=== PATIENT | female | born 2000 | race African-American/Black ===

== ENCOUNTER 2021-05-30 17:45 | Emergency (ER) | payer OTHER, SELFPAY ==
[2021-05-30 17:57] VITALS: BP 124/81; PULSE 74; RESP 18; TEMP 37.2; O2SAT 98
[2021-05-30 21:01] LABS: Basophils Percent Auto 0.3 % (0.2-1.2); Eosinophils Absolute Auto 0.1 K/mm3 (0-0.3); Eosinophils Percent Auto 0.8 % (0-4.4); Hematocrit 28.3 % (37.0-47.0); Hemoglobin 8.1 g/dL (12.0-15.0); Immature Granulocyte Absolute 0.03 K/mm3 (0.00-0.031); Immature Granulocyte Percent A 0.5 % (0-0.5); Immature Platelet Fraction Pct 1.5 % (0.9-11.2); Lymphocytes Absolute Auto 1.99 K/mm3 (0.9-3.2); Lymphocytes Percent Auto 31.2 % (18.3-44.2); Mean Corpuscular HGB Conc 28.6 g/dl (32-36); Mean Corpuscular Hemoglobin 16.7 pg (26-34); Mean Corpuscular Volume 58.4 fl (80-100); Mean Platelet Volume 8.6 fl (7.4-10.4); Monocytes Absolute Auto 0.9 K/mm3 (0.1-0.6); Monocytes Percent Auto 13.3 % (2.6-8.5); Neutrophils Absolute Auto 3.4 K/mm3 (1.3-6.7); Neutrophils Percent Auto 53.9 % (45.5-73.1); Platelet Count Result 381 k/mm3 (150-375); Red Blood Count 4.85 M/mm3 (4.2-5.4); Red Cell Distribution Width 23.8 % (11.5-14.5); White Blood Count 6.4 K/mm3 (4.5-10.0)
[2021-05-30 21:12] VITALS: BP 125/90; PULSE 72; RESP 18; O2SAT 100
[2021-05-30 21:59] LABS: Anisocytosis 3+ (NORMAL); Hypochromasia 1+ (NORMAL)
[2021-05-30 22:00] LABS: Ovalocytes 1+ (NORMAL)
--- NOTE | 2021-05-30 22:00 | ED.FEMALEGU ---
HPI - Female Genitourinary General Chief complaint: BRANCHER Stated complaint: 8 weeks ,Abd Pain Time Seen by Provider: 05/30/21 21:05 Source: patient Mode of arrival: ambulatory Limitations: no limitations History of Present Illness HPI Narrative: Patient is a 20-year-old female, , at 8 weeks age of gestation, complaining of mild lower abdominal cramping that started today. Patient denies any vaginal bleeding or discharge. Patient denies any fever or chills. Review of Systems Review of Systems: All systems reviewed & are unremarkable except as noted in HPI and below Constitutional: Constitutional: Denies body ache(s), Denies chills, Denies excessive sweating, Denies fatigue, Denies fever(s), Denies headache(s), Denies lethargy, Denies malaise, Denies weakness and Denies weight loss Eyes: Eyes: Denies blurry vision, Denies change in vision and Denies loss of vision ENT: Denies dizziness, Denies ear discharge, Denies headache(s), Denies lip swelling, Denies epistaxis, Denies nasal congestion, Denies neck pain, Denies throat swelling and Denies tongue swelling Cardiovascular: Cardiovascular: Denies chest pain, Denies chest pain at rest, Denies chest pain with activity, Denies diaphoresis, Denies rapid heart rate, Denies edema, Denies irregular heart rhythm, Denies lightheadedness, Denies palpitations, Denies dyspnea and Denies dyspnea on exertion Respiratory: Respiratory: Denies chest congestion, Denies cough, Denies hemoptysis, Denies dyspnea and Denies dyspnea on exertion Gastrointestinal: Gastrointestinal: Denies melena, Denies hematochezia, Denies diarrhea, Denies nausea, Denies vomiting and Denies hematemesis Musculoskeletal: Musculoskeletal: Denies abnormal gait, Denies deformity, Denies joint swelling, Denies limited range of motion, Denies neck pain and Denies numbness Neurologic: Denies Abnormal speech present, Denies abnormal gait, Denies confusion, Denies dizziness, Denies headache(s), Denies focal weakness, Denies loss of vision, Denies numbness, Denies Other visual disturbances, Denies Sensory deficit (Neuro) and Denies weakness Psychiatric: Psychiatric: Denies confusion, Denies depression, Denies auditory hallucinations, Denies homicidal ideation and Denies suicidal ideation Endocrine: Endocrine: Denies cold intolerance, Denies excessive sweating, Denies fatigue, Denies heat intolerance and Denies palpitations Hematologic/Lymphatic: Hematologic/Lymphatic: Denies easy bleeding and Denies easy bruising Allergic/Immunologic: Allergic/Immunologic: Denies lip swelling, Denies throat swelling and Denies tongue swelling PMFSH Comments Past medical history: None Family history: Noncontributory Social history: Non-smoker no EtOH or drug use Exam Const: General: cooperative, healthy appearing, comfortable, no acute distress, well developed, alert and awake; No confusion Orientation/consciousness: oriented to person, oriented to place, oriented to time, patient oriented x3 and No confusion Limitations: no limitations HENMT: Head: normal to inspection, normocephalic and atraumatic Ears: hearing grossly normal bilaterally, TM normal on the right and TM normal on the left General nose exam: Normal external nose present, Normal nares present and No nasal discharge present Face and sinus: normal facial exam Mouth: Yes Normal oral and palatal mucosa present, Yes lip normal, Yes tongue normal and Yes oropharynx normal Throat: posterior oropharynx normal, tonsils normal and uvula midline Eyes: General: appearance normal, both eyes and all related structures Pupils: Equal, round and reactive pupils present EOM: EOMs intact bilaterally Neck: Neck: normal visual inspection, full ROM, no lymphadenopathy and no meningeal signs Chest: Chest palpation & inspection: normal inspection of the chest Resp: Effort & Inspection: normal respiratory effort, able to speak in complete sentences, no respiratory distress and not tachypneic Auscu
[2021-05-30 22:36] VITALS: BP 130/84; PULSE 74; RESP 18; O2SAT 100
[2021-05-30 22:42] LABS: Alanine Aminotransferase 13 U/L (4-35); Albumin Level 4.1 g/dL (3.5-5.1); Alkaline Phosphatase 48 U/L (38-126); Anion Gap 9 mmol/L (8-16); Aspartate Amino Transferase 26 U/L (14-36); Bilirubin,Total 0.4 mg/dL (0.2-1.3); Blood Urea Nitrogen 4 mg/dL (7-17); Calcium 9.1 mg/dL (8.4-10.2); Carbon Dioxide 20 mmol/L (22-30); Chloride 106 mmol/L (98-107); Estimated CRCL calculation 140 ml/min; Estimated Glomerular Filt Rate > 60; Glucose 95 mg/dL (65-110); Potassium 3.4 mmol/L (3.4-5.0); Sodium 135 mmol/L (137-145)
[2021-05-30 22:52] LABS: Bilirubin Urine Negative (Negative); Color Urine Yellow (Yellow); Glucose Urine UA Negative (Negative); Ketones Urine Negative (Negative); Leukocyte Esterase Ur 2+ LEU/UL (Negative); Nitrate Urine Negative (Negative); Protein Urine Negative (Negative); Urobilinogen Urine 0.2 mg/dL (<2.0)
[2021-05-30 22:54] LABS: Add Urine Microscopic? YES; Appearance Urine Sl Cloudy (Clear); Blood Urine Trace-Intact (Negative)
[2021-05-30 23:04] LABS: RBC Urine 0-2 /hpf (0-2); Squamous Epithelial Cell Urine Moderate /hpf (Few)
[2021-05-30 23:05] LABS: Bacteria Urine 2+ /hpf
--- NOTE | 2021-05-30 23:58 | PC.NURSE ---
Per EDP Dr Lozano ok not to administer Rhogram
== END 2021-05-31 | disposition home or self-care (01) ==
PROVIDERS: Emergency Medicine; Emergency Provider Emergency Medicine
DX: O23.41 Unspecified infection of urinary tract in pregnancy, first trimester (principal); Z3A.08 8 weeks gestation of pregnancy
CPT/HCPCS: 36415; 80053; 81001; 84702; 85025; 85055; 85461; 87086; 99283

== ENCOUNTER 2021-08-15 13:24 | Outpatient (CLI) | payer OTHER, SELFPAY ==
--- NOTE | ~2021-08-15 | US_ITS ---
EXAMINATION: US OB /maternal detail DATE: 08/15/2021 14:28 INDICATION: Second trimester anatomic survey TECHNIQUE: Real-time ultrasound of the pelvis was performed. COMPARISON: None. FINDINGS: There is a single living fetus in breech presentation. The placenta is anterior. heart rate is 132 beats per minute (bpm). cardiac activity and movement are noted. The amniotic fluid index is subjectively normal. The following anatomy was identified as normal: 4 chamber heart 3 vessel cord cord insertion kidneys urinary bladder stomach spine diaphragm ventricles cisterna magna cerebellum The following biometric data were obtained: Biparietal diameter (BPD): 4.9 cm; head circumference (HC): 17.9 cm; abdominal circumference (AC): 15 .6 cm; femur length (FL): 3.2 cm. These measurements are concordant. Estimated weight is 358 g +/- 53 g, which correlates with the 92nd percentile when 01/05/2022 is used as estimated date of delivery. As single measurements, these parameters are each equal to the following estimated gestational ages w ith ranges of +/- 2 standard deviations: BPD: 21 weeks 0 days ( 19 weeks 2 days - 22 weeks 5 days). HC: 20 weeks 2 days ( 18 weeks 6 days - 21 weeks 6 days). AC: 20 weeks 6 days ( 18 weeks 5 days - 22 weeks 6 days). FL: 20 weeks 1 days ( 18 weeks 2 days - 22 weeks 0 days). estimated gestational age based solely on measurements from this exam is 20 weeks 4 days +/- 1 weeks 3 days. IMPRESSION: 1. Single living fetus in reach presentation. 2. Estimated weight is 358 g +/- 53 g, which correlates with the 92nd percentile when 01/05/2022 is used as estimated date of delivery. Reviewed, dictated and finalized at location B. NE TURNER IMPRESSION: 1. Single living fetus in reach presentation. 2. Estimated weight is 358 g +/- 53 g, which correlates with the 92nd per centile when 01/05/2022 is used as estimated date of delivery.
== END 2021-08-15 13:25 | disposition home or self-care (01) ==
PROVIDERS: Visit Provider Obstetrics & Gynecology Gynecology
DX: Z34.92 Encounter for supervision of normal pregnancy, unspecified, second trimester (principal); Z3A.20 20 weeks gestation of pregnancy
CPT/HCPCS: 76805

== ENCOUNTER 2021-10-16 07:28 | Outpatient (RCR) | payer OTHER, SELFPAY ==
[2021-10-16 09:02] LABS: Hematocrit 33.9 % (37.0-47.0)
[2021-10-16 09:10] LABS: Glucose 1 Hour PP 50gm Dose 176 mg/dL
[2021-10-16 09:50] LABS: HIV 1/2 Ab P24 Ag Result Negative (Negative)
[2021-10-16] MEDS: RHO(D) IMMUNE GLOBULIN 300 MCG/2 ML SYRINGE IM (16:08)
== END 2022-01-14 23:59 | disposition home or self-care (01) ==
LOC: ANHLAB 07:28
PROVIDERS: Visit Provider Nurse Practitioner
DX: Z11.4 Encounter for screening for human immunodeficiency virus [HIV] (principal); Z29.13 Encounter for prophylactic Rho(D) immune globulin; O36.0190 Maternal care for anti-D [Rh] antibodies, unspecified trimester, not applicable or unspecified; Z3A.00 Weeks of gestation of pregnancy not specified
CPT/HCPCS: 36415; 82306; 82947; 85014; 85018; 85461; 86703; 90384; 96372; G0432; J2790

== ENCOUNTER 2021-11-11 15:14 | Outpatient (CLI) | payer OTHER, SELFPAY ==
[2021-11-11 15:37] VITALS: BP 136/93; PULSE 87
[2021-11-11 15:40] VITALS: BP 136/93; PULSE 86
[2021-11-11 15:45] VITALS: BP 134/97; PULSE 87
[2021-11-11 15:59] LABS: Basophils Percent Auto 0.1 % (0.2-1.2); Eosinophils Percent Auto 0.4 % (0-4.4); Hematocrit 35.2 % (37.0-47.0); Hemoglobin 11.8 g/dL (12.0-15.0); Immature Granulocyte Absolute 0.06 K/mm3 (0.00-0.031); Immature Granulocyte Percent A 0.8 % (0-0.5); Lymphocytes Absolute Auto 2.09 K/mm3 (0.9-3.2); Mean Corpuscular HGB Conc 33.5 g/dl (32-36); Mean Corpuscular Hemoglobin 24.4 pg (26-34); Mean Corpuscular Volume 72.7 fl (80-100); Mean Platelet Volume 9.8 fl (7.4-10.4); Monocytes Absolute Auto 0.8 K/mm3 (0.1-0.6); Monocytes Percent Auto 9.8 % (2.6-8.5); Neutrophils Absolute Auto 4.8 K/mm3 (1.3-6.7); Neutrophils Percent Auto 61.9 % (45.5-73.1); Platelet Count Result 276 k/mm3 (150-375); Red Blood Count 4.84 M/mm3 (4.2-5.4); White Blood Count 7.7 K/mm3 (4.5-10.0)
[2021-11-11 16:00] VITALS: BP 124/89; PULSE 81
[2021-11-11 16:05] LABS: Add Urine Microscopic? YES; Appearance Urine Cloudy (Clear); Bacteria Urine Trace /hpf; Bilirubin Urine Negative (Negative); Blood Urine 1+ (Negative); Color Urine Straw (Yellow); Glucose Urine UA Negative (Negative); Ketones Urine Negative (Negative); Leukocyte Esterase Ur 3+ LEU/UL (NEGATIVE); Mucus Urine Rare /lpf; Nitrate Urine Negative (Negative); Protein Urine Negative (Negative); Squamous Epithelial Cell Urine Rare /hpf (Few); Urobilinogen Urine Negative mg/dL (<2.0)
[2021-11-11 16:06] LABS: Specific Grav Ur 1.001 (1.001-1.035)
[2021-11-11 16:09] LABS: Alanine Aminotransferase 20 U/L (4-35); Alkaline Phosphatase 126 U/L (38-126); Anion Gap 6 mmol/L (8-16); Aspartate Amino Transferase 31 U/L (14-36); Bilirubin,Total 0.4 mg/dL (0.2-1.3); Blood Urea Nitrogen 5 mg/dL (7-17); Calcium 9.6 mg/dL (8.4-10.2); Carbon Dioxide 18 mmol/L (22-30); Chloride 107 mmol/L (98-107); Estimated Glomerular Filt Rate > 60; Glucose 85 mg/dL (65-110); Potassium 3.9 mmol/L (3.4-5.0); Sodium 131 mmol/L (137-145); Uric Acid 4.6 mg/dL (2.5-7.5)
[2021-11-11 16:15] VITALS: BP 128/86; PULSE 85
[2021-11-11 16:17] LABS: Creatinine Urine 26.6 mg/dL; Total Protein Urine Random 16 mg/dL
[2021-11-11] MEDS: BETAMETHASONE SOD PHOS/ACETATE 30 MG/5 ML VIAL 12 MG IM (17:03)
[2021-11-11 17:22] VITALS: BP 136/93; PULSE 86
== END 2021-11-11 16:00 | disposition home or self-care (01) ==
LOC: ANHOBOP 15:18 → ANHOBPP 15:18
PROVIDERS: Visit Provider Obstetrics & Gynecology Gynecology
DX: O13.9 Gestational [pregnancy-induced] hypertension without significant proteinuria, unspecified trimester (principal); Z3A.00 Weeks of gestation of pregnancy not specified
CPT/HCPCS: 36415; 59025; 80053; 81001; 82570; 84156; 84550; 85025; 87086; 87088; 96372; 99199; J0702

== ENCOUNTER 2021-11-12 16:27 | Outpatient (CLI) | payer OTHER, SELFPAY ==
[2021-11-12 16:31] VITALS: BMI 36.6
[2021-11-12] MEDS: BETAMETHASONE SOD PHOS/ACETATE 30 MG/5 ML VIAL 12 MG IM (16:35)
[2021-11-12 17:19] LABS: Collection Time Urine 24 HOURS
[2021-11-12 17:22] LABS: Total Volume 24 Hour Urine 2000 ml
[2021-11-12 17:35] LABS: Creatinine Clearance Urine 192.4 ml/min (75-125); Creatinine Urine 72.4 mg/dL; Patient Weight 187 Lbs; Total Protein Urine 24 Hr 200 mg/24hr (28-141); Total Protein Urine Random 10 mg/dL
== END 2021-11-12 16:28 | disposition home or self-care (01) ==
PROVIDERS: Visit Provider Obstetrics & Gynecology
DX: O36.8990 Maternal care for other specified fetal problems, unspecified trimester, not applicable or unspecified (principal); Z3A.00 Weeks of gestation of pregnancy not specified
CPT/HCPCS: 81050; 82575; 84156; 96372; J0702

== ENCOUNTER 2021-11-13 13:59 | Observation (INO) | payer OTHER, SELFPAY ==
--- NOTE | ~2021-11-13 | US_ITS ---
EXAMINATION: US OB BPP wo non-stress DATE: 11/16/2021 07:54 INDICATION: Prior abnormal 01/12 biophysical profile TECHNIQUE: Real-time pelvic ultrasound was performed. The interpreting radiologist was not present fo r the study. COMPARISON: 11/14/2021 FINDINGS: There is a single living fetus in vertex presentation. The placenta is anterior. heart rate is 136 beats per minute (bpm). Biophysical profile performed by the technologist: breathing (30 sec sustained breathing in 30 minutes): 2 out of 2 movement (3 gross body movements in 30 minutes): 2 out of 2 tone (one episode of mqnbktx-xdpaniurw-ajdorft limb movement): 2 out of 2 Amniotic fluid pocket (2 cm): 2 out of 2 Total score: 8 out of 8 IMPRESSION: 1. Single living fetus in vertex presentation with heart rate of 136 bpm. 2. Biophysical profile 8 out of 8. Reviewed, dictated and finalized at location A. ALTERATIONS SEAMSTRESS
--- NOTE | ~2021-11-13 | US_ITS ---
EXAMINATION: US OB BPP wo non-stress DATE: 11/13/2021 13:14 INDICATION: Biophysical profile for decreased movement TECHNIQUE: Real-time pelvic ultrasound was performed. The interpreting radiologist was not present fo r the study. COMPARISON: None. FINDINGS: There is a single living fetus in vertex presentation. The placenta is anterior. heart rate is 122 beats per minute (bpm). Biophysical profile performed by the technologist: breathing (30 sec sustained breathing in 30 minutes): 0 out of 2 movement (3 gross body movements in 30 minutes): 0 out of 2 tone (one episode of cpffojp-mvcxkjwww-jdcenih limb movement): 2 out of 2 Amniotic fluid pocket (2 cm): 2 out of 2 Total score: 4 out of 8 IMPRESSION: 1. Single living fetus in vertex presentation with heart rate of 122 bpm. 2. Biophysical profile 4 out of 8 with no points given for either breathing or movement. Findings were discussed with Laurie St, the nurse caring for the patient, at 1:32 PM. Reviewed, dictated and finalized at location A. CUTTER IMPRESSION: 1. Single living fetus in vertex presentation with heart rate of 122 bpm. 2. Biophysical profile 4 out of 8 with no points given for either breath ing or movement. Findings were discussed with Laurie St, the nurse car ing for the patient, at 1:32 PM.
--- NOTE | ~2021-11-13 | US_ITS ---
EXAMINATION: US OB follow up w BPP, US umbilical doppler DATE: 11/14/2021 07:50 INDICATION: Decreased movement. TECHNIQUE: Real-time pelvic ultrasound was performed. The interpreting radiologist was not present fo r the study. COMPARISON: None. FINDINGS: There is a single living fetus in vertex presentation. The placenta is anterior. heart rate is 124 beats per minute (bpm). Normal amniotic fluid index of 14.0 cm (5th%-95%: 8.6-34.2 cm at 32 week s estimated gestational age) The following biometric data were obtained: BPD: 8.2 cm -> 32 weeks 6 days Head circumference: 29.9 cm -> 33 weeks 1 days Abdominal circumference: 29.7 cm -> 33 weeks 5 days Femur length: 6.4 cm -> 32 weeks 6 days These measurements are concordant. Head circumference to abdominal circumference ratio: 1.01 (normal range 0.96-1.11). Estimated weight: 2172 g (+/-) 326 g, 4 lbs 12 oz (+/-) 11 oz Biophysical profile performed by the technologist: breathing (30 sec sustained breathing in 30 minutes): 0 out of 2 movement (3 gross body movements in 30 minutes): 0 out of 2 tone (one episode of gcqkvby-ecjeqadmq-pwhpulo limb movement): 2 out of 2 Amniotic fluid pocket (2 cm): 2 out of 2 Total score: 4 out of 8 The umbilical artery demonstrates a peak systolic and diastolic velocity ratio of 2.6-2.9 at the fetu s, 2.7-3.0 in the mid cord and 2.6 - 2.8 near the placenta (5th%-95%: 2.07-3.53 at 34 weeks). IMPRESSION: 1. Single living fetus in vertex presentation. 2. Normal amniotic fluid index of 14.0 cm. 3. Unchanged biophysical profile 4 out of 8 with no points given for either breathing or movement. 4. Normal umbilical arterial Doppler systolic to diastolic ratio with mean of 2.8. 4. Estimated weight is 65th percentile by Hadlock criteria when 01/05/2022 is used as the estimat ed date of delivery (HANANE). Please correlate with clinical information or earlier ultrasounds for most accurate HANANE. Reviewed, dictated and finalized at location A. ISHING MACHINE OPERATOR IMPRESSION: 1. Single living fetus in vertex presentation. 2. Normal amniotic fluid index of 14.0 cm. 3. Unchanged biophysical profile 4 out of 8 with no points given for either fet al breathing or movement. 4. Normal umbilical arterial Doppler systolic to diastolic ratio with mean of 2 .8. 4. Estimated weight is 65th percentile by Hadlock criteria when 01/05/2022 is used as the estimated date of delivery (HANANE). Please correlate with clinical information or earlier ultrasounds for most accurate HANANE.
[2021-11-13 14:42] VITALS: BP 136/77; PULSE 83
[2021-11-13] MEDS: SODIUM CHLORIDE 0.9% IV 1,000 ML 999 ML IV CONT (17:53)
[2021-11-13 18:39] VITALS: BP 140/85; PULSE 85; TEMP 36.6
[2021-11-13 21:47] VITALS: BP 116/72; PULSE 74
[2021-11-14] VITALS (8 sets, daily range): BP systolic 123–145; BP diastolic 81–98; PULSE 60–79; TEMP 36.7–37.4
[2021-11-14 05:08] LABS: Hematocrit 34.4 % (37.0-47.0); Hemoglobin 11.2 g/dL (12.0-15.0); Mean Corpuscular HGB Conc 32.6 g/dl (32-36); Mean Corpuscular Hemoglobin 24.6 pg (26-34); Mean Corpuscular Volume 75.4 fl (80-100); Mean Platelet Volume 9.8 fl (7.4-10.4); Platelet Count Result 244 k/mm3 (150-375); Red Blood Count 4.56 M/mm3 (4.2-5.4); Red Cell Distribution Width 17.4 % (11.5-14.5); White Blood Count 12.3 K/mm3 (4.5-10.0)
[2021-11-14 05:23] LABS: Alanine Aminotransferase 18 U/L (4-35); Albumin Level 3.6 g/dL (3.5-5.1); Alkaline Phosphatase 107 U/L (38-126); Anion Gap 9 mmol/L (8-16); Aspartate Amino Transferase 25 U/L (14-36); Bilirubin,Total 0.3 mg/dL (0.2-1.3); Blood Urea Nitrogen 5 mg/dL (7-17); Calcium 9.3 mg/dL (8.4-10.2); Carbon Dioxide 17 mmol/L (22-30); Chloride 111 mmol/L (98-107); Estimated Glomerular Filt Rate > 60; Glucose 116 mg/dL (65-110); Potassium 3.9 mmol/L (3.4-5.0); Sodium 137 mmol/L (137-145); Uric Acid 3.9 mg/dL (2.5-7.5)
--- NOTE | 2021-11-14 12:39 | WPDOBADMIT ---
Obstetrics - Admit Note Admission Note: record reviewed. No pertinent additions to the history and/or any subsequent changes in the physical findings that are not consistent with the expected course of the were found. Additions to the history and/or subsequent changes in the physical findings follow. Here for decreased movement. BPP /10 (-2 for breathing, -2 mvmt) yesterday. Repeat today same. Normal dopplers, normal VARGHESE, normal growth. vss afebrile with some elevated BP abdomen soft, nt FHTs reactive a/p1: IUP 32 4/ 7 wks 2. Preeclampsia-continue observation of BP and fetus 3. Fetus 2172 Vtx. 03/16. Repeat BPP 11/16. S/p steroids
[2021-11-14] MEDS: DOCUSATE SODIUM 100 MG CAPSULE PO (21:27)
[2021-11-14] MEDS: FERROUS SULFATE 324 MG TABLET PO (21:28)
[2021-11-14] MEDS: FOLIC ACID 1 MG TABLET PO (21:28)
[2021-11-14] MEDS: MULTIVIT/MIN/PREN/FOL AC/IRON TABLET 1 TAB PO (21:28)
[2021-11-15] VITALS (7 sets, daily range): BP systolic 120–149; BP diastolic 69–96; PULSE 66–74; RESP 18–20; TEMP 36.5–37.2; BMI 36.1
--- NOTE | 2021-11-15 07:32 | PM.OBPNVD ---
OB - PN: Subj Subjective Date/time seen: 11/15/21 07:32 Interval history: No PIH Sx. Reports good FM. OB - PN: Obj Data Labs CBC & Chem 7: 11/14/21 05:00 11/14/21 05:00 Imaging Radiologist's impression: Impressions Doppler Study 11/14/21 07:54 IMPRESSION: 1. Single living fetus in vertex presentation. 2. Normal amniotic fluid index of 14.0 cm. 3. Unchanged biophysical profile 4 out of 8 with no points given for either breathing or movement. 4. Normal umbilical arterial Doppler systolic to diastolic ratio with mean of 2.8. 4. Estimated weight is 65th percentile by Hadlock criteria when 01/05/2022 is used as the estimated date of delivery (HANANE). Please correlate with clinical information or earlier ultrasounds for most accurate HANANE. Obstetrical Follow-Up 11/14/21 07:54 IMPRESSION: 1. Single living fetus in vertex presentation. 2. Normal amniotic fluid index of 14.0 cm. 3. Unchanged biophysical profile 4 out of 8 with no points given for either breathing or movement. 4. Normal umbilical arterial Doppler systolic to diastolic ratio with mean of 2.8. 4. Estimated weight is 65th percentile by Hadlock criteria when 01/05/2022 is used as the estimated date of delivery (HANANE). Please correlate with clinical information or earlier ultrasounds for most accurate HANANE. OB - PN A/P Assessment and Plan (1) 32 weeks gestation of : Code(s): Z3A.32 - 32 weeks gestation of Status: Acute Assessment and Plan: 32 5/7 weeks s/p steroids continue monitoring BPP tomorrow (2) Preeclampsia: Code(s): O14.90 - Unspecified pre-eclampsia, unspecified trimester Status: Acute Assessment and Plan: BP stable. Continue to observe. Time Spent With Patient Time: Total time spent is greater than 50% in coordination of care (as documented) at patient's floor/unit and/or counseling patient: Exam Narrative: fundus soft, nt Abdomen soft, nt
--- NOTE | 2021-11-15 08:21 | OBADM ---
This patient, Karin Arzola, admitted to the OB room OB Post 117 for observation. Patient/family oriented to hospital policies and general routines including ID bracelet, bed and alarms, visiting hours, pain management, procedures, bathroom and other care routines, personal items, smoking policy, room service/diet, and visiting hours. Patient/Family are encouraged to report perceived risks to care and to ask questions if they do not understand what they are told or what they should do.
[2021-11-15] MEDS: MULTIVIT/MIN/PREN/FOL AC/IRON TABLET 1 TAB PO (09:18)
[2021-11-15] MEDS: FOLIC ACID 1 MG TABLET PO ×2 (09:18→17:20)
[2021-11-15] MEDS: FERROUS SULFATE 324 MG TABLET PO ×2 (09:18→17:20)
[2021-11-15] MEDS: DOCUSATE SODIUM 100 MG CAPSULE PO (09:18)
[2021-11-16 00:43] VITALS: BP 130/81; PULSE 67
[2021-11-16 06:48] VITALS: BP 148/97; PULSE 93; RESP 20; TEMP 36.6
--- NOTE | 2021-11-16 07:33 | PM.OBPNVD ---
OB - PN: Subj Subjective Date/time seen: 11/16/21 07:33 Interval history: Headache yesterday and heartburn. Reports good FM. OB - PN: Obj Data Labs CBC & Chem 7: 11/14/21 05:00 11/14/21 05:00 OB - PN A/P Assessment and Plan (1) Preeclampsia: Code(s): O14.90 - Unspecified pre-eclampsia, unspecified trimester Status: Acute Assessment and Plan: BPP today. BP's increasing but stable (2) 32 weeks gestation of : Code(s): Z3A.32 - 32 weeks gestation of Status: Acute Assessment and Plan: 32 03/13 ws s/p steroids Time Spent With Patient Time: Total time spent is greater than 50% in coordination of care (as documented) at patient's floor/unit and/or counseling patient: Exam Const: General: no acute distress GI: GI Palp: No abdominal tenderness Percussion: Yes other (FHTs reactive)
[2021-11-16] MEDS: FOLIC ACID 1 MG TABLET PO (08:41)
[2021-11-16] MEDS: FERROUS SULFATE 324 MG TABLET PO (08:41)
[2021-11-16] MEDS: MULTIVIT/MIN/PREN/FOL AC/IRON TABLET 1 TAB PO (08:41)
[2021-11-16] MEDS: DOCUSATE SODIUM 100 MG CAPSULE PO (08:41)
[2021-11-16 08:43] VITALS: BP 147/95; PULSE 78
[2021-11-16 10:48] VITALS: BP 126/63; PULSE 87
== END 2021-11-16 12:20 | disposition home or self-care (01) ==
PROVIDERS: Admitting Provider Obstetrics & Gynecology Gynecology; Visit Provider Obstetrics & Gynecology Gynecology
DX: O14.93 Unspecified pre-eclampsia, third trimester (principal); Z3A.32 32 weeks gestation of pregnancy
CPT/HCPCS: 36415; 59025; 76816; 76819; 76820; 80053; 84550; 85027; A9270; G0378; G0379; J7030

== ENCOUNTER 2021-11-22 10:05 | Observation (INO) | payer OTHER, SELFPAY ==
[2021-11-22] VITALS (11 sets, daily range): BP systolic 115–147; BP diastolic 72–102; PULSE 66–100; TEMP 36.6; BMI 35.7
--- NOTE | 2021-11-22 10:32 | OBADM ---
This patient, Karin Arzola, admitted to the OB room OB Post 116 for observation. Patient/family oriented to hospital policies and general routines including ID bracelet, bed and alarms, visiting hours, pain management, procedures, bathroom and other care routines, personal items, smoking policy, room service/diet, and visiting hours. Patient/Family are encouraged to report perceived risks to care and to ask questions if they do not understand what they are told or what they should do.
[2021-11-22 11:42] LABS: Add Urine Microscopic? YES; Appearance Urine Clear (Clear); Bacteria Urine Trace /hpf; Bilirubin Urine Negative (Negative); Blood Urine 2+ (Negative); Color Urine Yellow (Yellow); Glucose Urine UA Negative (Negative); Ketones Urine Negative (Negative); Leukocyte Esterase Ur 3+ LEU/UL (Negative); Mucus Urine Rare /lpf; Nitrate Urine Negative (Negative); Protein Urine Negative (Negative); Specific Grav Ur 1.014 (1.001-1.035); Squamous Epithelial Cell Urine Moderate /hpf (Few); Urobilinogen Urine Negative mg/dL (<2.0); WBC Urine 0-3 /hpf
[2021-11-22 11:57] LABS: Basophils Percent Auto 0.3 % (0.2-1.2); Eosinophils Percent Auto 0.5 % (0-4.4); Hematocrit 35.1 % (37.0-47.0); Hemoglobin 11.4 g/dL (12.0-15.0); Immature Granulocyte Absolute 0.08 K/mm3 (0.00-0.031); Lymphocytes Absolute Auto 1.61 K/mm3 (0.9-3.2); Lymphocytes Percent Auto 20.5 % (18.3-44.2); Mean Corpuscular HGB Conc 32.5 g/dl (32-36); Mean Corpuscular Hemoglobin 24.8 pg (26-34); Mean Corpuscular Volume 76.5 fl (80-100); Mean Platelet Volume 10.1 fl (7.4-10.4); Monocytes Absolute Auto 0.7 K/mm3 (0.1-0.6); Monocytes Percent Auto 8.3 % (2.6-8.5); Neutrophils Absolute Auto 5.4 K/mm3 (1.3-6.7); Neutrophils Percent Auto 69.4 % (45.5-73.1); Platelet Count Result 220 k/mm3 (150-375); Red Blood Count 4.59 M/mm3 (4.2-5.4); Red Cell Distribution Width 17.6 % (11.5-14.5); White Blood Count 7.8 K/mm3 (4.5-10.0)
[2021-11-22 11:59] LABS: Creatinine Urine 98.8 mg/dL
[2021-11-22 12:07] LABS: Alanine Aminotransferase 14 U/L (4-35); Albumin Level 3.5 g/dL (3.5-5.1); Alkaline Phosphatase 111 U/L (38-126); Anion Gap 7 mmol/L (8-16); Aspartate Amino Transferase 25 U/L (14-36); Bilirubin,Total 0.4 mg/dL (0.2-1.3); Blood Urea Nitrogen 6 mg/dL (7-17); Calcium 9.5 mg/dL (8.4-10.2); Carbon Dioxide 19 mmol/L (22-30); Chloride 107 mmol/L (98-107); Estimated CRCL calculation 141 ml/min; Estimated Glomerular Filt Rate > 60; Glucose 93 mg/dL (65-110); Potassium 4.1 mmol/L (3.4-5.0); Sodium 133 mmol/L (137-145); Uric Acid 4.3 mg/dL (2.5-7.5)
[2021-11-22 12:29] LABS: Total Protein Urine Random < 5 mg/dL; Ur Ttl Prot Creatinine Ratio < 0.05 mg/mg (0-0.20)
--- NOTE | 2021-11-22 13:06 | PC.NURSE ---
1251--Reported labs and pt condition to Dr. Vargas. DC orders given.
--- NOTE | 2021-12-02 08:25 | PM.OBTRLD ---
OB - Triage/Final Diagnosis Visit Information Reason for evaluation: other (spotting and cramping) Comments/Additional reasons for admission: I have assessed the risk for this patient, Karin Arzola, and determined that she would benefit from observation care. Evaluation Laboratory results: Laboratory Tests 11/22/21 11/22/21 11/22/21 11:15 11:15 11:46 WBC 7.8 RBC 4.59 Hgb 11.4 L Hct 35.1 L MCV 76.5 L MCH 24.8 L MCHC 32.5 RDW 17.6 H Plt Count 220 MPV 10.1 Immature Gran % (Auto) 1.0 H Neut % (Auto) 69.4 Lymph % (Auto) 20.5 [place] % (Auto) 8.3 Eos % (Auto) 0.5 Baso % (Auto) 0.3 Lymph # (Auto) 1.61 [place] # (Auto) 0.7 H Eos # (Auto) 0.0 Baso # (Auto) 0.0 Abs Immat Gran (auto) 0.08 H Absolute Neuts (auto) 5.4 Absolute Nucleated RBC 0.0 Nucleated RBC % 0.0 Sodium Potassium Chloride Carbon Dioxide Anion Gap BUN Creatinine Estim Creat Clear Calc Estimated GFR Glucose Uric Acid Calcium Total Bilirubin AST ALT Alkaline Phosphatase Total Protein Albumin Urine Color Yellow Urine Appearance Clear Urine pH 6.0 Ur Specific [place] 1.014 Urine Protein Negative Urine Glucose (UA) Negative Urine Ketones Negative Ur Blood (Man) 2+ H Urine Nitrate Negative Urine Bilirubin Negative Urine Urobilinogen Negative Leukocyte Esterase Rfl 3+ H Urine RBC 3-5 H Urine WBC 0-3 Ur Squamous Epith Cells Moderate H Urine Bacteria Trace Urine Mucus Rare U Random Total Protein < 5 Urine Creatinine 98.8 Protein/Creat Ratio 2 < 0.05 11/22/21 11:46 WBC RBC Hgb Hct MCV MCH MCHC RDW Plt Count MPV Immature Gran % (Auto) Neut % (Auto) Lymph % (Auto) [place] % (Auto) Eos % (Auto) Baso % (Auto) Lymph # (Auto) [place] # (Auto) Eos # (Auto) Baso # (Auto) Abs Immat Gran (auto) Absolute Neuts (auto) Absolute Nucleated RBC Nucleated RBC % Sodium 133 L Potassium 4.1 Chloride 107 Carbon Dioxide 19 L Anion Gap 7 L BUN 6 L Creatinine 0.50 L Estim Creat Clear Calc 141 Estimated GFR > 60 Glucose 93 Uric Acid 4.3 Calcium 9.5 Total Bilirubin 0.4 AST 25 ALT 14 Alkaline Phosphatase 111 Total Protein 7.0 Albumin 3.5 Urine Color Urine Appearance Urine pH Ur Specific [place] Urine Protein Urine Glucose (UA) Urine Ketones Ur Blood (Man) Urine Nitrate Urine Bilirubin Urine Urobilinogen Leukocyte Esterase Rfl Urine RBC Urine WBC Ur Squamous Epith Cells Urine Bacteria Urine Mucus U Random Total Protein Urine Creatinine Protein/Creat Ratio 2
== END 2021-11-22 13:54 | disposition home or self-care (01) ==
PROVIDERS: Admitting Provider Obstetrics & Gynecology Gynecology; Visit Provider Obstetrics & Gynecology Gynecology
DX: O26.853 Spotting complicating pregnancy, third trimester (principal); Z3A.33 33 weeks gestation of pregnancy
CPT/HCPCS: 36415; 80053; 81001; 82570; 84156; 84550; 85025; G0378; G0379

== ENCOUNTER 2021-11-30 10:47 | Outpatient (CLI) | payer OTHER, SELFPAY ==
[2021-11-30] VITALS (7 sets, daily range): BP systolic 124–142; BP diastolic 86–93; PULSE 65–93
[2021-11-30 11:23] LABS: Basophils Percent Auto 0.4 % (0.2-1.2); Eosinophils Percent Auto 0.4 % (0-4.4); Hematocrit 35.5 % (37.0-47.0); Hemoglobin 11.6 g/dL (12.0-15.0); Immature Granulocyte Absolute 0.06 K/mm3 (0.00-0.031); Immature Granulocyte Percent A 0.8 % (0-0.5); Lymphocytes Percent Auto 21.2 % (18.3-44.2); Mean Corpuscular HGB Conc 32.7 g/dl (32-36); Mean Corpuscular Hemoglobin 24.8 pg (26-34); Mean Corpuscular Volume 75.9 fl (80-100); Mean Platelet Volume 10.4 fl (7.4-10.4); Monocytes Absolute Auto 0.6 K/mm3 (0.1-0.6); Monocytes Percent Auto 8.8 % (2.6-8.5); Neutrophils Absolute Auto 4.8 K/mm3 (1.3-6.7); Neutrophils Percent Auto 68.4 % (45.5-73.1); Platelet Count Result 225 k/mm3 (150-375); Red Blood Count 4.68 M/mm3 (4.2-5.4); Red Cell Distribution Width 17.2 % (11.5-14.5); White Blood Count 7.1 K/mm3 (4.5-10.0)
[2021-11-30 11:31] LABS: Alanine Aminotransferase 17 U/L (4-35); Albumin Level 3.5 g/dL (3.5-5.1); Alkaline Phosphatase 132 U/L (38-126); Anion Gap 9 mmol/L (8-16); Aspartate Amino Transferase 32 U/L (14-36); Bilirubin,Total 0.2 mg/dL (0.2-1.3); Blood Urea Nitrogen 8 mg/dL (7-17); Calcium 8.9 mg/dL (8.4-10.2); Carbon Dioxide 17 mmol/L (22-30); Chloride 110 mmol/L (98-107); Estimated Glomerular Filt Rate > 60; Glucose 94 mg/dL (65-110); Sodium 136 mmol/L (137-145); Uric Acid 4.8 mg/dL (2.5-7.5)
[2021-11-30 11:34] LABS: Add Urine Microscopic? YES; Appearance Urine Clear (Clear); Bacteria Urine Trace /hpf; Bilirubin Urine Negative (Negative); Blood Urine Negative (Negative); Color Urine Yellow (Yellow); Glucose Urine UA Negative (Negative); Ketones Urine Negative (Negative); Leukocyte Esterase Ur 3+ LEU/UL (Negative); Mucus Urine Rare /lpf; Nitrate Urine Negative (Negative); Protein Urine Negative (Negative); Specific Grav Ur 1.018 (1.001-1.035); Squamous Epithelial Cell Urine Many /hpf (Few); Urobilinogen Urine Negative mg/dL (<2.0)
[2021-11-30 12:25] LABS: Creatinine Urine 110.2 mg/dL; Total Protein Urine Random 6 mg/dL; Ur Ttl Prot Creatinine Ratio 0.05 mg/mg (0-0.20)
== END 2021-11-30 12:40 | disposition home or self-care (01) ==
LOC: ANHOBOP 10:51 → ANHOBPP 10:51
PROVIDERS: Visit Provider Obstetrics & Gynecology Gynecology
DX: O13.9 Gestational [pregnancy-induced] hypertension without significant proteinuria, unspecified trimester (principal); Z3A.00 Weeks of gestation of pregnancy not specified
CPT/HCPCS: 36415; 59025; 80053; 81001; 82570; 84156; 84550; 85025; 99199

== ENCOUNTER 2021-12-04 17:16 | Outpatient (CLI) | payer OTHER, SELFPAY ==
[2021-12-04 17:35] VITALS: BP 132/91; PULSE 80
[2021-12-04 17:45] VITALS: BP 135/89; PULSE 78
[2021-12-04 17:49] LABS: Basophils Percent Auto 0.2 % (0.2-1.2); Eosinophils Percent Auto 0.3 % (0-4.4); Hematocrit 35.1 % (37.0-47.0); Hemoglobin 11.6 g/dL (12.0-15.0); Immature Granulocyte Absolute 0.04 K/mm3 (0.00-0.031); Immature Granulocyte Percent A 0.6 % (0-0.5); Lymphocytes Absolute Auto 1.13 K/mm3 (0.9-3.2); Lymphocytes Percent Auto 17.9 % (18.3-44.2); Mean Corpuscular Hemoglobin 25.1 pg (26-34); Mean Corpuscular Volume 75.8 fl (80-100); Monocytes Absolute Auto 0.7 K/mm3 (0.1-0.6); Monocytes Percent Auto 11.3 % (2.6-8.5); Neutrophils Absolute Auto 4.4 K/mm3 (1.3-6.7); Neutrophils Percent Auto 69.7 % (45.5-73.1); Platelet Count Result 220 k/mm3 (150-375); Red Blood Count 4.63 M/mm3 (4.2-5.4); Red Cell Distribution Width 17.5 % (11.5-14.5); White Blood Count 6.3 K/mm3 (4.5-10.0)
[2021-12-04 18:00] VITALS: BP 147/109; PULSE 85
[2021-12-04 18:15] VITALS: BP 130/91; PULSE 87
[2021-12-04 18:22] LABS: Alanine Aminotransferase 22 U/L (4-35); Albumin Level 3.6 g/dL (3.5-5.1); Alkaline Phosphatase 129 U/L (38-126); Anion Gap 6 mmol/L (8-16); Aspartate Amino Transferase 38 U/L (14-36); Bilirubin,Total 0.3 mg/dL (0.2-1.3); Blood Urea Nitrogen 10 mg/dL (7-17); Calcium 9.2 mg/dL (8.4-10.2); Carbon Dioxide 18 mmol/L (22-30); Chloride 108 mmol/L (98-107); Estimated Glomerular Filt Rate > 60; Glucose 82 mg/dL (65-110); Potassium 4.2 mmol/L (3.4-5.0); Sodium 132 mmol/L (137-145); Uric Acid 4.4 mg/dL (2.5-7.5)
--- NOTE | 2021-12-04 18:32 | PC.NURSE ---
1827- called Dr. Vargas- labs reviewed and BP's reviewed. order to d/c pt home. pt to f/u in office.
[2021-12-04 19:22] LABS: Total Protein Urine Random 14 mg/dL
[2021-12-04 19:25] LABS: Ur Ttl Prot Creatinine Ratio 0.74 mg/mg (0-0.20)
[2021-12-04 19:26] LABS: Add Urine Microscopic? YES; Appearance Urine Clear (Clear); Bacteria Urine Trace /hpf; Bilirubin Urine Negative (Negative); Blood Urine 1+ (Negative); Color Urine Straw (Yellow); Glucose Urine UA Negative (Negative); Ketones Urine Negative (Negative); Leukocyte Esterase Ur 3+ LEU/UL (NEGATIVE); Mucus Urine Rare /lpf; Nitrate Urine Negative (Negative); Protein Urine Negative (Negative); Squamous Epithelial Cell Urine Rare /hpf (Few); Urobilinogen Urine Negative mg/dL (<2.0); WBC Urine 0-3 /hpf (0-3)
[2021-12-04 19:29] LABS: Specific Grav Ur 1.003 (1.001-1.035)
== END 2021-12-04 18:32 | disposition home or self-care (01) ==
LOC: ANHOBOP 17:21 → ANHOBPP 17:25
PROVIDERS: Visit Provider Obstetrics & Gynecology Gynecology
DX: O13.9 Gestational [pregnancy-induced] hypertension without significant proteinuria, unspecified trimester (principal); Z3A.00 Weeks of gestation of pregnancy not specified
CPT/HCPCS: 36415; 80053; 81001; 82570; 84156; 84550; 85025; 87086; 87088; 99199

== ENCOUNTER 2021-12-11 15:06 | Outpatient (RCR) | payer OTHER, SELFPAY ==
[2021-11-20 14:13] VITALS: BP 127/70; PULSE 96
--- NOTE | ~2021-12-11 | US_ITS ---
EXAMINATION: 1. US OB BPP wo non-stress 2. US umbilical doppler DATE: 11/20/2021 13:50 INDICATION: Gestational hypertension. Third trimester. TECHNIQUE: Real-time pelvic ultrasound was performed. COMPARISON: Ultrasound 11/16/2021 FINDINGS: There is a single living fetus in vertex presentation. The placenta is anterior. heart rate is 147 beats per minute (bpm). Biophysical profile performed by the technologist: breathing (30 sec sustained breathing in 30 minutes): 2 out of 2 movement (3 gross body movements in 30 minutes): 2 out of 2 tone (one episode of vnitjca-prltwmauw-googmex limb movement): 2 out of 2 Amniotic fluid pocket (2 cm): 2 out of 2 Total score: 8 out of 8 Umbilical artery pulsed Doppler demonstrates a peak systolic to end-diastolic velocity ratio (S/D rat io) of 2.9 (5th percentile = 2.11, 95th percentile = 3.67). IMPRESSION: 1. Single living fetus in vertex presentation. 2. Biophysical profile 8 out of 8. 3. Normal umbilical artery Doppler. Reviewed, dictated and finalized at location A. ICATIONS SPECIALIST IMPRESSION: 1. Single living fetus in vertex presentation. 2. Biophysical profile 8 out of 8. 3. Normal umbilical artery Doppler.
--- NOTE | 2021-12-11 16:27 | PC.NURSE ---
Spoke with Dr. moy, Orders to discharge to home after 1 hour on EFM if no decels noted.
== END 2021-12-19 10:50 | disposition home or self-care (01) ==
LOC: ANHOBOP 15:06
PROVIDERS: Visit Provider Obstetrics & Gynecology Gynecology
DX: O24.419 Gestational diabetes mellitus in pregnancy, unspecified control (principal); Z3A.33 33 weeks gestation of pregnancy; Z3A.36 36 weeks gestation of pregnancy
CPT/HCPCS: 59025; 76819; 76820

== ENCOUNTER 2021-12-17 20:45 | Inpatient (IN) | payer OTHER, SELFPAY ==
[2021-12-14] VITALS (33 sets, daily range): BP systolic 122–159; BP diastolic 69–108; PULSE 67–92; RESP 16–18; TEMP 36.6; O2SAT 97; BMI 35.4
--- NOTE | 2021-12-14 15:53 | LDADM ---
This patient, Karin Arzola, was admitted to Labor/Delivery/Recovery 108 on 12/14/21 at 15:53. Plans for labor, pain management and were discussed with patient. Patient/family oriented to hospital policies and general routines including ID bracelet, bed and alarms, visiting hours, pain management, procedures, bathroom and other care routines, personal items, smoking policy, room service/diet and guest tray routines, infant security routines, and visiting hours. Patient/Family are encouraged to report perceived risks to care and to ask questions if they do not understand what they are told or what they should do. See OBIX for further documentation.
--- NOTE | 2021-12-14 16:28 | WPDANESEPP ---
Anes - Eval Pre Procedure Procedure: Labor epidural Date/Time: 12/14/21 16:28 Surgeon: Alicia Preop Diagnosis: Abd pain with contractions Pre Op Diagnosis: Induction of Labor Patient Data Age: 21 Gender: F Height: 1.55 m Weight: 85 kg Last Vital Signs Pulse 75 12/14/21 16:16 BP 140/102 H 12/14/21 16:16 Allergies Allergy/AdvReac Type Severity Reaction Status Date / Time No Known Allergies Allergy Verified 12/14/21 16:25 Home Medications Medication Instructions Recorded Confirmed Type docusate sodium [Colace] 100 mg PO BID 11/14/21 12/14/21 History ferrous sulfate [iron] 325 mg PO BID 11/14/21 12/14/21 History PNV cmb#95-ferrous fumarate-FA 1 tablet PO DAILY 12/11/21 12/14/21 History [] aspirin 81 mg PO DAILY 12/11/21 12/14/21 History ergocalciferol (vitamin D2) 1,250 mcg PO WEEKLY 12/11/21 12/14/21 History [Vitamin D2] labetalol 100 mg PO Q12H 12/11/21 12/14/21 History : gestational age (edc 01/05/21) HCG: positive Patient hx anesthesia problems: none Family hx anesthesia problems: none Results Review: All pre-operative results and documents have been reviewed as part of the pre-operative evaluation. PMFSH Past Medical History Medical History Anxiety and depression Obesity PIH ( induced hypertension) Preeclampsia and not yet delivered Family History Family History Mother Diabetes mellitus Hypertension Social History Social History Smoking status: Never smoker Substance use: never Spiritual care concerns: No Exam Day of Procedure 12/14/21 16:28 Patient weight: obese Lungs: clear to auscultation Airway: Mallampati scale class II Neurological: alert and oriented
[2021-12-14 16:37] LABS: Basophils Percent Auto 0.3 % (0.2-1.2); Eosinophils Percent Auto 0.3 % (0-4.4); Hematocrit 37.1 % (37.0-47.0); Hemoglobin 11.8 g/dL (12.0-15.0); Immature Granulocyte Absolute 0.06 K/mm3 (0.00-0.031); Immature Granulocyte Percent A 0.9 % (0-0.5); Lymphocytes Absolute Auto 1.57 K/mm3 (0.9-3.2); Lymphocytes Percent Auto 24.6 % (18.3-44.2); Mean Corpuscular HGB Conc 31.8 g/dl (32-36); Mean Corpuscular Hemoglobin 24.5 pg (26-34); Mean Platelet Volume 10.2 fl (7.4-10.4); Monocytes Absolute Auto 0.6 K/mm3 (0.1-0.6); Monocytes Percent Auto 9.1 % (2.6-8.5); Neutrophils Absolute Auto 4.1 K/mm3 (1.3-6.7); Neutrophils Percent Auto 64.8 % (45.5-73.1); Platelet Count Result 258 k/mm3 (150-375); Red Blood Count 4.82 M/mm3 (4.2-5.4); White Blood Count 6.4 K/mm3 (4.5-10.0)
[2021-12-14 16:48] LABS: Alanine Aminotransferase 28 U/L (4-35); Albumin Level 3.8 g/dL (3.5-5.1); Alkaline Phosphatase 159 U/L (38-126); Anion Gap 8 mmol/L (8-16); Aspartate Amino Transferase 54 U/L (14-36); Bilirubin,Total 0.4 mg/dL (0.2-1.3); Blood Urea Nitrogen 7 mg/dL (7-17); Carbon Dioxide 20 mmol/L (22-30); Chloride 107 mmol/L (98-107); Estimated CRCL calculation 146 ml/min; Estimated Glomerular Filt Rate > 60; Glucose 70 mg/dL (65-110); Potassium 3.9 mmol/L (3.4-5.0); Sodium 135 mmol/L (137-145); Uric Acid 5.3 mg/dL (2.5-7.5)
[2021-12-14] MEDS: LABETALOL HCL 100 MG TABLET PO (16:50)
[2021-12-14 17:29] LABS: HIV 1/2 Ab P24 Ag Result Negative (Negative)
[2021-12-14] MEDS: DINOPROSTONE 10 MG VAG INSERT VAGINAL (17:32)
[2021-12-14] MEDS: LACTATED RINGERS 1,000 ML 999 ML IV CONT (21:27)
[2021-12-14] MEDS: LACTATED RINGERS 1,000 ML 125 ML IV CONT (23:00)
[2021-12-15] VITALS (65 sets, daily range): BP systolic 41–169; BP diastolic 31–118; PULSE 57–154; RESP 16–20; TEMP 36.4–37.3; O2SAT 99
[2021-12-15] MEDS: LABETALOL HCL 100 MG TABLET PO ×2 (05:30→17:11)
[2021-12-15] MEDS: OXYTOCIN 30 UNITS/NS 500 ML 30 UNITS/500 ML BAG 6 UNITS IV CONT (06:05)
--- NOTE | 2021-12-15 07:52 | WPDOBADMIT ---
Obstetrics - Admit Note Admission Note: record reviewed. No pertinent additions to the history and/or any subsequent changes in the physical findings that are not consistent with the expected course of the were found. Additions to the history and/or subsequent changes in the physical findings follow. Here for MIL at 37 wks for preeclampsia. Labs ok. BP stable. Cervadil last pm and now Pitocin. Cervix FT/70/-2. FHTs reactive with occ variables. Continue Labetalol
[2021-12-15] MEDS: AMPICILLIN 2 GM/NS 100 ML 2 GM/100 ML BAG IVPB (08:28)
--- NOTE | 2021-12-15 09:15 | WPDANESEPP ---
Anes - Eval Pre Procedure Procedure: labor epidural Date/Time: 12/15/21 09:15 Surgeon: chinmay Preop Diagnosis: pain during labor Pre Op Diagnosis: Induction of Labor Patient Data Age: 21 Gender: F Height: 1.55 m Weight: 85 kg Last Vital Signs Temp 37.1 C 12/15/21 08:30 Pulse 77 12/15/21 09:05 Resp 20 12/15/21 04:43 BP 129/86 12/15/21 09:05 Pulse Ox 97 12/14/21 18:07 Allergies Allergy/AdvReac Type Severity Reaction Status Date / Time No Known Allergies Allergy Verified 12/14/21 16:25 Home Medications Medication Instructions Recorded Confirmed Type docusate sodium [Colace] 100 mg PO BID 11/14/21 12/14/21 History ferrous sulfate [iron] 325 mg PO BID 11/14/21 12/14/21 History PNV cmb#95-ferrous fumarate-FA 1 tablet PO DAILY 12/11/21 12/14/21 History [] aspirin 81 mg PO DAILY 12/11/21 12/14/21 History ergocalciferol (vitamin D2) 1,250 mcg PO WEEKLY 12/11/21 12/14/21 History [Vitamin D2] labetalol 100 mg PO Q12H 12/11/21 12/14/21 History Laboratory Tests 12/14/21 12/14/21 12/14/21 16:27 16:27 16:27 WBC 6.4 K/mm3 K/mm3 (4.5-10.0) RBC 4.82 M/mm3 M/mm3 (4.2-5.4) Hgb 11.8 g/dL L g/dL (12.0-15.0) Hct 37.1 % % (37.0-47.0) MCV 77.0 fl L fl (80-100) MCH 24.5 pg L pg (26-34) MCHC 31.8 g/dl L g/dl (32-36) RDW 19.0 % H % (11.5-14.5) Plt Count 258 k/mm3 k/mm3 (150-375) MPV 10.2 fl fl (7.4-10.4) Immature Gran % (Auto) 0.9 % H % (0-0.5) Neut % (Auto) 64.8 % % (45.5-73.1) Lymph % (Auto) 24.6 % % (18.3-44.2) Gove % (Auto) 9.1 % H % (2.6-8.5) Eos % (Auto) 0.3 % % (0-4.4) Baso % (Auto) 0.3 % % (0.2-1.2) Lymph # (Auto) 1.57 K/mm3 K/mm3 (0.9-3.2) Gove # (Auto) 0.6 K/mm3 K/mm3 (0.1-0.6) Eos # (Auto) 0.0 K/mm3 K/mm3 (0-0.3) Baso # (Auto) 0.0 K/mm3 K/mm3 (0.0-0.1) Abs Immat Gran (auto) 0.06 K/mm3 H K/mm3 (0.00-0.031) Absolute Neuts (auto) 4.1 K/mm3 K/mm3 (1.3-6.7) Absolute Nucleated RBC 0.0 K/mm3 K/mm3 (0.0-0.012) Nucleated RBC % 0.0 % % (0.0-0.2) Sodium Potassium Chloride Carbon Dioxide Anion Gap BUN Creatinine Estim Creat Clear Calc Estimated GFR Glucose Uric Acid Calcium Total Bilirubin AST ALT Alkaline Phosphatase Total Protein Albumin RPR Pending HIV 1&2 Ab/P24 Ag 4thGn Negative (Negative) Blood Type Antibody Screen 12/14/21 12/14/21 16:27 16:27 WBC RBC Hgb Hct MCV MCH MCHC RDW Plt Count MPV Immature Gran % (Auto) Neut % (Auto) Lymph % (Auto) Gove % (Auto) Eos % (Auto) Baso % (Auto) Lymph # (Auto) Gove # (Auto) Eos # (Auto) Baso # (Auto) Abs Immat Gran (auto) Absolute Neuts (auto) Absolute Nucleated RBC Nucleated RBC % Sodium 135 mmol/L L mmol/L (137-145) Potassium 3.9 mmol/L mmol/L (3.4-5.0) Chloride 107 mmol/L mmol/L (98-107) Carbon Dioxide 20 mmol/L L mmol/L (22-30) Anion Gap 8 mmol/L mmol/L (8-16) BUN 7 mg/dL mg/dL (7-17) Creatinine 0.50 mg/dL L mg/dL (0.7-1.0) Estim Creat Clear Calc 146 ml/min ml/min Estimated GFR > 60 (59 - ) Glucose 70 mg/dL mg/dL (65-110) Uric Acid 5.3 mg/dL mg/dL (2.5-7.5) Calcium 9.0 mg/dL mg/dL (8.4-10.2) Total Bilirubin 0.4 mg/dL mg/dL (0.2-1.3) AST 54 U/L H U/L
[2021-12-15] MEDS: AMPICILLIN 1 GM/NS 50 ML 1 GM/50 ML BAG IVPB ×3 (12:38→20:58)
[2021-12-15] MEDS: LACTATED RINGERS 1,000 ML 125 ML IV CONT (12:41)
[2021-12-15] MEDS: DINOPROSTONE 10 MG VAG INSERT VAGINAL (17:12)
[2021-12-15] MEDS: ACETAMINOPHEN 325 MG TABLET 650 MG (21:00)
[2021-12-16] VITALS (30 sets, daily range): BP systolic 115–165; BP diastolic 66–108; PULSE 62–92; RESP 18; TEMP 36.9–37.4
[2021-12-16] MEDS: AMPICILLIN 1 GM/NS 50 ML 1 GM/50 ML BAG IVPB ×3 (02:02→11:16)
[2021-12-16] MEDS: LABETALOL HCL 100 MG TABLET PO ×2 (06:10→17:42)
[2021-12-16] MEDS: fentaNYL CITRATE INJ (*CRX) 100 MCG/2 ML VIAL 50 MCG IV PUSH ×4 (06:59→20:39)
[2021-12-16] MEDS: miSOPROStol 25 MCG TABLET VAGINAL (07:06)
[2021-12-16 07:54] LABS: Rapid Plasma Reagin Non-Reactive (NonReactive)
--- NOTE | 2021-12-16 10:28 | PM.OBPNLAB ---
Pain Control Date/time seen: 12/16/21 10:28 Comments: Cervadil, Pitocinx 12 hours then second cervadil overnight. Just began Cytotec this am. Patient sleeping Pelvic Exam Dilation (cm): 0 Effacement (%): 50 station: -2 Amniotic membrane status: Intact Contractions Monitor mode: External Contraction intensity: Mild Status status: Category l Assessment and Plan Assessment: induction ongoing Plan: continuous present management
[2021-12-16] MEDS: miSOPROStol 25 MCG TABLET 50 MCG VAGINAL ×2 (11:17→15:05)
[2021-12-17] VITALS (174 sets, daily range): BP systolic 110–161; BP diastolic 65–120; PULSE 50–103; RESP 15–20; TEMP 36.4–37.2; O2SAT 88–100
[2021-12-17] MEDS: fentaNYL CITRATE INJ (*CRX) 100 MCG/2 ML VIAL 50 MCG IV PUSH ×2 (03:30→11:30)
[2021-12-17] MEDS: LABETALOL HCL 100 MG TABLET PO ×3 (05:17→19:42)
[2021-12-17] MEDS: miSOPROStol 25 MCG TABLET 50 MCG VAGINAL (06:18)
--- NOTE | 2021-12-17 09:24 | PM.OBPNLAB ---
Pain Control Date/time seen: 12/17/21 09:24 Pain control: tolerating well Pelvic Exam Dilation (cm): 1 Effacement (%): 50 station: -2 Amniotic membrane status: Ruptured (AROM with clear fluid) Contractions Monitor mode: External Contraction intensity: Mild Status status: Category l Assessment and Plan Assessment: induction ongoing Comments: restart Pitocin
[2021-12-17] MEDS: OXYTOCIN 30 UNITS/NS 500 ML 30 UNITS/500 ML BAG IV CONT (10:07)
[2021-12-17] MEDS: LACTATED RINGERS 1,000 ML 125 ML IV CONT ×3 (10:07→22:00)
[2021-12-17] MEDS: ONDANSETRON INJ 4 MG/2 ML VIAL IV PUSH ×2 (10:47→18:53)
[2021-12-17] MEDS: fentaNYL CITRATE INJ (*CRX) 100 MCG/2 ML VIAL IV PUSH ×2 (12:46→13:44)
[2021-12-17] MEDS: SODIUM CHLORIDE 0.9% IV 300 ML 600 ML I-UTERINE (17:05)
--- NOTE | 2021-12-17 21:02 | PM.IMHP ---
H&P: HPI History of Present Illness Date/Time: 12/17/21 21:02 Chief Complaint: intolerance of labor Narrative: the patient is a 21-year-old 1 at 37 and 3/7th weeks admitted for medical induction of labor secondary to preeclampsia. Patient has received 2 doses of Cervidil, [id number] of Cytotec, and Pitocin. In addition the patient membranes were ruptured this morning. The patient has had minimal change from closed to3.5cm. For the past several hours the has not tolerated labor. Amnioinfusion, position change, and decreasing Pitocin did not resolve the decelerations. Finally, discontinuing Pitocin has resolved the decelerations. It was recommended to proceed with primary . Patient voiced understanding and agrees to proceed. Review of Systems Review of Systems: No PIH symptoms PMFSH Past Medical History Medical History (Updated 12/17/21 @ 21:07 by Judy Vargas MD) Anxiety and depression Obesity Preeclampsia Family History Family History Mother Diabetes mellitus Hypertension Social History Social History Smoking status: Never smoker Substance use: never Spiritual care concerns: No Meds Home Medications and Allergies Home Medications Medication Instructions Recorded Confirmed Type docusate sodium [Colace] 100 mg PO BID 11/14/21 12/14/21 History ferrous sulfate [iron] 325 mg PO BID 11/14/21 12/14/21 History PNV cmb#95-ferrous fumarate-FA 1 tablet PO DAILY 12/11/21 12/14/21 History [] aspirin 81 mg PO DAILY 12/11/21 12/14/21 History ergocalciferol (vitamin D2) 1,250 mcg PO WEEKLY 12/11/21 12/14/21 History [Vitamin D2] labetalol 100 mg PO Q12H 12/11/21 12/14/21 History Allergies Allergy/AdvReac Type Severity Reaction Status Date / Time No Known Allergies Allergy Verified 12/14/21 16:25 Vital Signs Vital Signs - 24 hr 12/16/21 20:48 12/16/21 21:01 12/16/21 21:31 Temperature Pulse Rate 76 84 79 Respiratory Rate Blood Pressure 140/95 H 135/96 H 134/87 Pulse Oximetry 12/16/21 22:01 12/16/21 22:31 12/16/21 23:01 Temperature Pulse Rate 71 66 64 Respiratory Rate Blood Pressure 144/95 H 134/83 127/94 H Pulse Oximetry 12/17/21 00:00 12/17/21 04:00 12/17/21 05:17 Temperature 98.3 F 98.3 F Pulse Rate 75 Respiratory Rate Blood Pressure 155/108 H Pulse Oximetry 12/17/21 06:16 12/17/21 06:42 12/17/21 07:01 Temperature 98.4 F Pulse Rate 76 103 H Respiratory Rate 18 Blood Pressure 124/89 134/97 H Pulse Oximetry 12/17/21 07:31 12/17/21 07:54 12/17/21 08:01 Temperature 98.5 F Pulse Rate 54 L 62 Respiratory Rate 18 Blood Pressure 136/84 150/107 H Pulse Oximetry 12/17/21 09:01 12/17/21 09:08 12/17/21 09:31 Temperature 98.5 F Pulse Rate 84 86 Respiratory Rate 20 Blood Pressure 147/97 H 139/91 H Pulse Oximetry 12/17/21 10:01 12/17/21 10:31 12/17/21 11:27 Temperature 98.6 F Pulse Rate 87 79 78 Respiratory Rate 20 Blood Pressure 141/94 H 138/106 H 147/107 H Pulse Oximetry 12/17/21 11:29 12/17/21 11:46 12/17/21 12:01 Temperature Pulse Rate 74 77 65 Respiratory Rate Blood Pressure 140/102 H 159/120 H 147/104 H Pulse Oximetry 12/17/21 12:11 12/17/21 12:16 12/17/21 12:31 Temperature Pulse Rate 65 63 68 Respiratory Rate Blood Pressure 154/110 H 149/97 H Pulse Oximetry 12/17/21 12:46 12/17/21 13:01 12/17/21 13:05 Temperature 98.1 F Pulse Rate 61 65 Respiratory Rate 20 Blood Pressure 147/94 H 128/77 Pulse Oximetry 12/17/21 13:16 12/17/21 13:31 12/17/21 13:47 Temperature Pulse Rate 74 67 72 Respiratory Rate Blood Pressure 157/100 H 142/87 H 154/96 H Pulse Oximetry 12/17/21 14:01 12/17/21 14:14 12/17/21 14:15 Temperature Pulse Rate 59 L 59 L Res
[2021-12-17] MEDS: ceFAZolin 2 GM/D5W 50 ML 2 GM/50 ML BAG IVPB (21:04)
--- NOTE | 2021-12-17 21:50 | W.PM.PROC2 ---
Procedure Note - Detailed Date of Procedure 12/17/21 Pre-op Diagnosis Induction of Labor 37 3/7 wks Preeclampsia intolerance of labor Post-op Diagnosis Same Procedure Performed Primary LTCS Surgeon Judy Vargas MD Anesthesia Epidural Findings male infant with 8/9 weighing 5#2oz; normal appearing tubes, ovaries, and uterus Description of Procedure the patient was taken to the operating room and placed under anesthesia in the dorsal supine position with a lateral tilt. Once anesthesia was deemed adequate a Pfannenstiel skin incision was made with a scalpel and carried down to the underlying layer of fascia which was nicked in the midline. Ochsner was used to tent the fascia which was then dissected off using sharp and blunt dissection. The rectus muscles were in the midline and the peritoneum tented and entered with Franco scissors. The incision is extended with blunt traction. The bladder blade is placed and the vesicouterine peritoneum grasped with a Peon. The incision is made with Metzenbaum then extended laterally and the bladder flap created digitally. The lower uterine segment was incised in a transverse fashion with the scalpel. The incision was extended laterally using blunt traction. The infant's head was brought up into the incision and noted to be in the left occiput posterior position. The infant was fully delivered and the cord clamped and cut a loose cord was noted around the infant's foot. The cord blood is taken for gases and lab. The placenta was removed using manual traction. the uterus is exteriorized and cleared of all clots and debris.The uterine incision was closed using 0 Monocryl in a running locked fashion with the same suture used to imbricate and obtain hemostasis. The uterus is returned to the abdomen And the incision again inspected. An additional suture of 0 Monocryl was required in the left angle for hemostasis. The gutters are irrigated and the incision again inspected noted to be hemostatic. The fascia is closed using 0 Vicryl in a running fashion. Subcutaneous tissues were irrigated and made hemostatic using Bovie cautery. The skin incision is closed using 4-0 Vicryl in a subcuticular fashion. Dermaflex was placed over the incision. sponge, needle, and instrument counts are correct per the OR staff. Patient was given Ancef prior to incision. Estimated Blood Loss 605 Urine Output 1,700 Drains Yes ( Beth catheter) Packing No Pathology Yes ( placenta) Complications No immediate complications Condition Stable Disposition Floor
--- NOTE | 2021-12-17 21:55 | PM.OBDSVD ---
DS: Admitting Diagnosis Discharge Date 12/19/21 Admitting Diagnosis intrauterine at 37 weeks for medical induction of labor secondary to preeclampsia DS: Discharge Diagnosis Discharge Diagnosis (1) 37 weeks gestation of : Code(s): Z3A.37 - 37 weeks gestation of Status: Acute (2) Preeclampsia: Code(s): O14.90 - Unspecified pre-eclampsia, unspecified trimester Status: Acute (3) delivery delivered: Code(s): O82 - Encounter for delivery without indication Status: Acute OB - DS: Summary OB Procedures : NST, PIH Mgmt and Ultrasound OB Procedures Intrapartum: low cervical, transverse OB Procedures: : None Peripartum Data Infant Delivery Method: Section Procedures: Procedures Operation Date: 12/17/21 21:00 <No data on this case meets the specified criteria> complications: none Status at Discharge Functional status at discharge: independent ambulation Overall status at discharge: patient is progressing back to baseline Time Spent with Patient Time attestation: Total time spent providing and/or coordinating discharge services: Discharge Plan Discharge Attending physician on discharge: Judy Vargas Discharging Clinician: Judy Vargas Anticipated Discharge Date/Time: 12/19/21 21:56 Patient Disposition: Home, Self-Care Activity: may shower, may drive after 2 weeks and pelvic rest Diet: regular Wound Care Instructions: incision open to air Patient Instructions: Antibiotic Form Stand Alone Forms: General Discharge Information Follow-up/Referrals: Judy Vargas MD [Physician] - 1 Week ( and 6 weeks) Discharge Medications: New hydrocodone-acetaminophen 5-325 mg Tablet 1 tablet PO Q3H PRN (Reason: Moderate Pain (4-6)) Qty: 30 RF: 0 norethindrone (contraceptive) 0.35 mg tablet 0.35 mg PO DAILY Qty: 28 RF: 5 Continued ergocalciferol (vitamin D2) [Vitamin D2] 1,250 mcg (50,000 unit) Capsule 1,250 mcg PO WEEKLY RF: 0 labetalol 100 mg Tablet 100 mg PO Q12H RF: 0 PNV cmb#95-ferrous fumarate-FA [] 28 mg iron- 800 mcg Tablet 1 tablet PO DAILY RF: 0 ferrous sulfate [iron] 325 mg (65 mg iron) Tablet 325 mg PO BID RF: 0 Discontinued aspirin 81 mg Tablet 81 mg PO DAILY RF: 0 No Action docusate sodium [Colace] 100 mg Capsule 100 mg PO BID RF: 0 Date of admission: 12/17/21 20:45 Primary Care Provider: PHYSICIAN,SLOTTER OPERATOR HELPER Admitting Provider: Judy Vargas Attending physician on admission: Judy Vargas Condition: Stable
[2021-12-17] MEDS: KETOROLAC 30 MG/ML VIAL (*BKC) 15 MG IV PUSH (22:22)
[2021-12-17] MEDS: MORPHINE SULFATE INJ (*CRX) 10 MG/ML AMP 2 MG IV PUSH ×2 (23:10→23:34)
[2021-12-18] VITALS (19 sets, daily range): BP systolic 119–141; BP diastolic 70–91; PULSE 70–90; RESP 16–18; TEMP 36.8–37.2; O2SAT 96–100
[2021-12-18] MEDS: MORPHINE SULFATE INJ (*CRX) 10 MG/ML AMP 2 MG IV PUSH ×2 (00:10→00:21)
[2021-12-18] MEDS: HYDROcodone/acetaminophen (*CRX) 10-325 MG TABLET 1 TAB PO ×3 (00:55→13:34)
[2021-12-18] MEDS: diphenhydrAMINE HCl INJ 50 MG/ML VIAL 25 MG IV PUSH (00:57)
[2021-12-18] MEDS: KETOROLAC 30 MG/ML VIAL (*BKC) IV PUSH (05:06)
[2021-12-18] MEDS: DEXTROSE 5%/0.45% SOD CHL 1,000 ML 125 ML IV CONT (05:16)
[2021-12-18 05:35] LABS: Basophils Percent Auto 0.2 % (0.2-1.2); Eosinophils Percent Auto 0.1 % (0-4.4); Hematocrit 29.8 % (37.0-47.0); Hemoglobin 9.6 g/dL (12.0-15.0); Immature Granulocyte Absolute 0.05 K/mm3 (0.00-0.031); Immature Granulocyte Percent A 0.5 % (0-0.5); Lymphocytes Absolute Auto 1.65 K/mm3 (0.9-3.2); Lymphocytes Percent Auto 16.1 % (18.3-44.2); Mean Corpuscular HGB Conc 32.2 g/dl (32-36); Mean Corpuscular Hemoglobin 24.7 pg (26-34); Mean Corpuscular Volume 76.8 fl (80-100); Mean Platelet Volume 11.1 fl (7.4-10.4); Monocytes Absolute Auto 0.8 K/mm3 (0.1-0.6); Monocytes Percent Auto 8.1 % (2.6-8.5); Neutrophils Absolute Auto 7.7 K/mm3 (1.3-6.7); Platelet Count Result 181 k/mm3 (150-375); Red Blood Count 3.88 M/mm3 (4.2-5.4); Red Cell Distribution Width 18.8 % (11.5-14.5); White Blood Count 10.2 K/mm3 (4.5-10.0)
--- NOTE | 2021-12-18 05:55 | OBPPTRN ---
Patient transferred to post room #291 via stretcher. Support person present. Oriented to unit, room, information board, rooming in, admission packet and security measures. Patient verbalizes understanding.
--- NOTE | 2021-12-18 08:40 | PC.NURSE ---
0830 - Introductions made and mother led discussion on her desires to breastfeed, pump/feed, and formula feed. Discussed risk and benefits of breast and bottle feeding. Primary RN has taken to the nursery for pediatric assessment. Reviewed milk production and how mother can watch for adequate intake and output with . Discussed weight, jaundice, and blood sugar all appropriate at this time. Reviewed pump usage with risks and benefits. Mother breastfed at 0720 without discomfort and states she pumped and syringe fed before that feeding. Mother voiced understanding of information and mom and baby guide resource reviewed as it pertains to , latch, positioning and milk production, storage and collection. Mother plans to call RN for positioning, if the latch causes discomfort, doesn't latch or assistance.
--- NOTE | 2021-12-18 09:30 | PC.NURSE ---
0900 - Consulted with patient to assess needs related to . Mother works well with her . Reviewed good handwashing when working with infant, breast, nipples and how to protect the nipples with a deep latch. Encouraged understanding the benefits of skin to skin, responding to feeding cues, frequencies of feeding 8-12 times in 24 hours (approximately 2-3 hours), duration of feedings, milk production, intake/output feeding sheet and signs of adequate intake. Discussed stimulating with skin to skin, hand expressing colostrum, touch and talking to to encourage eating at the breast. Reviewed positioning and alignment, supporting breast, off-centered (asymmetrical latch) and leading with the chin with big open wide gape. Infant latched optimally to the right and left breast in football position. Education given to mother of how to visualize suck/swallow ratios and drinking at the breast. was able to maintain latch without discomfort to mother. Nipple care, comfort and healing with warm, wet washcloth to rinse breast and leave to air-dry. Resources used to facilitate learning were used from the latch and feeding cues visual handout/ tool/mom and baby guide. Mother voiced understanding responding to feeding cues, may need to stimulating infant approximately 2-3 hours from the start of the last feeding, calling for assistance if the infant does not latch or there discomfort . Reported to primary RN.
[2021-12-18] MEDS: DOCUSATE SODIUM 100 MG CAPSULE (10:15)
[2021-12-18] MEDS: MULTIVIT/MIN/PREN/FOL AC/IRON TABLET 1 TAB (10:15)
[2021-12-18] MEDS: LABETALOL HCL 100 MG TABLET PO ×2 (10:17→20:05)
[2021-12-18] MEDS: DOCUSATE SODIUM 100 MG CAPSULE PO ×2 (10:18→20:05)
[2021-12-18] MEDS: SIMETHICONE 80 MG TAB.CHEW PO ×2 (10:18→13:35)
[2021-12-18] MEDS: RHO(D) IMMUNE GLOBULIN 300 MCG/2 ML SYRINGE IM (10:22)
--- NOTE | 2021-12-18 11:25 | PM.OBPNVD ---
OB - PN: Subj Subjective Date/time seen: 12/18/21 11:25 Patient comments: no complaints and pain well controlled baby status: doing well OB - PN: Obj Data Labs CBC & Chem 7: 12/18/21 03:47 12/14/21 16:27 Labs: Laboratory Results - last 24 hr 12/18/21 12/18/21 03:47 03:48 WBC 10.2 H RBC 3.88 L Hgb 9.6 L Hct 29.8 L MCV 76.8 L MCH 24.7 L MCHC 32.2 RDW 18.8 H Plt Count 181 MPV 11.1 H Immature Gran % (Auto) 0.5 Neut % (Auto) 75.0 H Lymph % (Auto) 16.1 L Hamlin % (Auto) 8.1 Eos % (Auto) 0.1 Baso % (Auto) 0.2 Lymph # (Auto) 1.65 Hamlin # (Auto) 0.8 H Eos # (Auto) 0.0 Baso # (Auto) 0.0 Abs Immat Gran (auto) 0.05 H Absolute Neuts (auto) 7.7 H Absolute Nucleated RBC 0.0 Nucleated RBC % 0.0 Blood Type O Negative Antibody Screen Negative Screen Negative Baby's Blood Type B pos Baby's DANIEL Negative Doses of RhIg Required 1 OB - PN A/P Assessment and Plan (1) Preeclampsia: Code(s): O14.90 - Unspecified pre-eclampsia, unspecified trimester Status: Acute Assessment and Plan: Input and output are matched. Blood pressures are stable. Continue labetalol. Plan day: 1 Plan: routine care Time Spent With Patient Time: Total time spent is greater than 50% in coordination of care (as documented) at patient's floor/unit and/or counseling patient: Exam Narrative: Bandage removed. Incision is clean dry and intact : Bimanual exam- vagina & uterus: other (Uterus firm, nt @U)
[2021-12-18] MEDS: diphenhydrAMINE HCl CAP 25 MG CAPSULE (11:35)
[2021-12-18] MEDS: IBUPROFEN 600 MG TABLET PO ×2 (13:34→20:05)
--- NOTE | 2021-12-18 19:34 | WPDANLDNPN2 ---
Anes-Prog Note L&D-Neuraxial Date/Time: 12/18/21 19:34 Neuraxial medications: intrathecal PF morphine Opiod-related complaints: none Patient feedback: Patient satisfied with post-operative pain management.
--- NOTE | 2021-12-18 19:34 | WPDANLDPN2 ---
Anes-Prog Note L&D Date/Time: 12/18/21 19:34 Comfortable throughout: section Neuraxial method: spinal Epidural/Spinal procedure site: clean & non-tender Neuro status: Neuro function grossly intact. Cardiovascular status: normal Respiratory status: normal Airway patency: baseline Mental status: baseline Post-Op hydration status: normal Vital Signs: Last Vital Signs Temp 36.8 C 12/18/21 17:00 Pulse 88 12/18/21 17:00 Resp 16 12/18/21 17:00 BP 124/78 12/18/21 17:00 Pulse Ox 99 12/18/21 15:43 Pain score (VAS): 0 I/O: Intake & Output 12/18/21 12/18/21 12/18/21 07:59 15:59 23:59 Intake Total 940 740 Output Total 550 1000 Balance 390 -260 Post-procedural complaints: none Patient feedback: Patient satisfied with anesthetic care.
[2021-12-18] MEDS: HYDROcodone/acetaminophen (*CRX) 5-325 MG TABLET 1 TAB PO ×2 (20:06→23:23)
[2021-12-19] MEDS: IBUPROFEN 600 MG TABLET PO (03:46)
[2021-12-19] MEDS: HYDROcodone/acetaminophen (*CRX) 5-325 MG TABLET 1 TAB PO ×2 (03:46→08:47)
[2021-12-19 03:50] VITALS: BP 126/78; PULSE 81; RESP 16; TEMP 36.9; O2SAT 97
--- NOTE | 2021-12-19 07:54 | PM.OBPNVD ---
OB - PN: Subj Subjective Date/time seen: 12/19/21 07:54 Patient comments: no complaints and pain well controlled baby status: doing well OB - PN: Obj Data Labs CBC & Chem 7: 12/18/21 03:47 12/14/21 16:27 Labs: Laboratory Results - last 24 hr 12/18/21 03:48 Blood Type O Negative Antibody Screen Negative Screen Negative Baby's Blood Type B pos Baby's DANIEL Negative Doses of RhIg Required 1 OB - PN A/P Assessment and Plan (1) Preeclampsia: Code(s): O14.90 - Unspecified pre-eclampsia, unspecified trimester Status: Acute Assessment and Plan: VSS DC home on Labetalol Plan day: 2 Plan: routine care, discharge home, follow up 6 weeks (and 1 wk) and other (plans micronor) Time Spent With Patient Time: Total time spent is greater than 50% in coordination of care (as documented) at patient's floor/unit and/or counseling patient: Exam Narrative: inc c/d/i : Bimanual exam- vagina & uterus: other (Uterus firm, nt @U)
[2021-12-19 08:45] VITALS: BP 134/87; PULSE 93; RESP 18; TEMP 37.3; O2SAT 99
[2021-12-19 08:46] VITALS: PULSE 86
[2021-12-19] MEDS: LABETALOL HCL 100 MG TABLET PO (08:46)
[2021-12-19] MEDS: MULTIVIT/MIN/PREN/FOL AC/IRON TABLET 1 TAB PO (08:46)
[2021-12-19] MEDS: DOCUSATE SODIUM 100 MG CAPSULE PO (08:47)
--- NOTE | 2021-12-19 11:27 | PC.NURSE ---
Patient instructed on viewing the discharge video Mother & Baby Care, The First Two Weeks . Patient was given the opportunity and encouraged to ask questions. Patient verbalized understanding of information shared and has been given the mother/baby guide for home reference.
--- NOTE | 2021-12-19 13:04 | PC.NURSE ---
[id number] Introductions were made and mother led the conversation with regards to her experience feeding her baby along with her plan to breast/bottle feed. Reminded mother to use good handwashing to prevent infection. has had appropriate feedings in the past 24 hours and meets the outcomes for weight, output and jaundice. Mother states she feels confident to continue effectively and supplementing her at home. Reviewed production of human milk, transition of milk, signs of adequate intake and engorgement prevention/relief and when to call the infant care provider using the mom and baby guide. Reviewed community resources and outpatient services as listed in the mom and baby guide/[facility] website. Reinforced watching for feeding cues with responsive feeding and how to stimulate infant to initiate feeding three hours from the start of the last feeding. Mother voiced understanding of information shared. Reported to primary RN.
[2021-12-20 09:51] VITALS: BP 133/84; PULSE 71; RESP 20; TEMP 37.4; O2SAT 100
== END 2021-12-19 12:07 | disposition home or self-care (01) | DRG 540 ==
LOC: ANHLDR 21:56 → ANHOB2 12-18 13:57 → ANHLDR 12-18 14:20 → ANHOB2 12-18 14:20
PROVIDERS: Admitting Provider Obstetrics & Gynecology Gynecology; Visit Provider Obstetrics & Gynecology Gynecology
PROC: 10D00Z1 Extraction of Products of Conception, Low, Open Approach (ICD-10-PCS; CPT 59514; principal; 2021-12-17 21:00)
DX: O14.94 Unspecified pre-eclampsia, complicating childbirth (principal); Z37.0 Single live birth; Z3A.37 37 weeks gestation of pregnancy; O36.8330 Maternal care for abnormalities of the fetal heart rate or rhythm, third trimester, not applicable or unspecified; O99.824 Streptococcus B carrier state complicating childbirth; O69.82X0 Labor and delivery complicated by other cord entanglement, without compression, not applicable or unspecified
CPT/HCPCS: 36415; 80053; 84550; 85025; 85461; 86592; 86703; 86850; 86900; 86901; 88307; 90384; A9270; G0432; J0131; J0290; J0690; J1200; J1885; J2270; J2274; J2405; J2590; J2704; J2790; J2795; J3010; J7030; J7120